=== PATIENT | male | born 1960 | race Caucasian/White ===

== ENCOUNTER 2017-01-06 20:50 | Inpatient (IN) | payer OTHER ==
[~2017-01-06] VITALS: Ht 162.6 cm; Wt 93.6 kg
[2017-01-06] MEDS ORDERED: SOD CHLORIDE 0.9% 1,000 ML IV STA (21:43)
[2017-01-06] MEDS ORDERED: morphine 4 MG/ML VIAL IV STA (21:51)
[2017-01-06] MEDS ORDERED: ONDANSETRON 4 MG INJ IV STA ×2 (21:51→23:09)
[2017-01-06] MEDS ORDERED: HYDROmorphONE 1 MG/ML SYG IV STA (23:09)
[2017-01-06 23:10] LABS: ABNORMAL IP MESSAGE 1; BASOPHILS % 0.4 % (0.0-2.0); EOSINOPHILS # 0.2 10^3/ul (0.0-0.5); EOSINOPHILS % 2.1 % (0.0-7.0); HEMATOCRIT 42.6 % (42.0-52.0); HEMOGLOBIN 14.8 g/dl (14.0-18.0); LYMPHOCYTES # 2.4 10^3/ul (0.8-2.9); LYMPHOCYTES % 25.5 % (15.0-51.0); MEAN CORPUSCULAR HEMOGLOBIN 32.2 pg (29.0-33.0); MEAN CORPUSCULAR HGB CONC 34.7 g/dl (32.0-37.0); MEAN CORPUSCULAR VOLUME 92.8 fl (82.0-101.0); MONOCYTE # 1.1 10^3/ul (0.3-0.9); MONOCYTES % 11.8 % (0.0-11.0); NEUTROPHIL # 5.7 10^3/ul (1.6-7.5); NEUTROPHILS % 59.8 % (39.0-77.0); PLATELET COUNT 74 10^3/UL (140-415); POSITIVE DIFF @See below; RED BLOOD COUNT 4.59 10^6/ul (4.70-6.10); RED CELL DISTRIBUTION WIDTH 13.9 % (11.5-14.5); WHITE BLOOD COUNT 9.5 10^3/ul (4.8-10.8)
[2017-01-06] MEDS ORDERED: IOHEXOL 300MG/ML 150 ML BTL ONE (23:24)
[2017-01-06] MEDS ORDERED: SOD CHLORIDE 0.9% 100 ML ONE (23:24)
[2017-01-06 23:31] LABS: ALANINE AMINOTRANSFERASE 91 IU/L (13-69); ALBUMIN 3.3 g/dl (3.3-4.9); ALBUMIN/GLOBULIN RATIO 0.89; ALKALINE PHOSPHATASE 185 IU/L (42-121); AMYLASE 128 U/L (11-123); ANION GAP 13 (8-16); ASPARTATE AMINO TRANSFERASE 107 IU/L (15-46); BILIRUBIN,INDIRECT 1.4 mg/dl (0-1.1); BILIRUBIN,TOTAL 1.7 mg/dl (0.2-1.3); BLOOD UREA NITROGEN 17 mg/dl (7-20); CALCIUM 8.6 mg/dl (8.4-10.2); CARBON DIOXIDE 27 mmol/L (21-31); CHLORIDE 110 mmol/L (97-110); CREATININE 0.81 mg/dl (0.61-1.24); GLUCOSE 103 mg/dl (70-220); POTASSIUM 4.2 mmol/L (3.5-5.1); SODIUM 146 mmol/L (135-144)
[2017-01-06 23:45] LABS: INR 1.14; PARTIAL THROMBOPLASTIN TIME 34.9 Sec (25.0-35.0); PROTIME 14.8 Sec (11.9-14.9); PT RATIO 1.2; TROPONIN-I < 0.012 ng/ml (0.00-0.12)
[2017-01-07] MEDS ORDERED: METOCLOPRAMIDE 10 MG INJ IV STA (00:34)
--- NOTE | 2017-01-07 00:47 | ERD ---
ER Documentation Chief Complaint Chief Complaint epigastric pain x 1 week, worse today HPI This is a 56-year-old male with a history of hepatitis C diagnosed one year ago. The patient indicates that for the past 2 weeks he has been experiencing intermittent epigastric pain that has significantly worsened several hours prior to arrival. He did have an episode of nonbloody nonbilious emesis but denies any hemoptysis hematemesis or melanotic stools. He indicated he been placed on medication for his hepatitis C but has not taken that for the past several weeks due to the severity of his pain. He has a history of remote alcohol use but states he has been abstinent from alcohol for over 1 year. He denies any fever shaking or chills. He has no shortness of breath at rest or exertion. He states the pain is persistent, nonradiating, 10 out of 10 in intensity and not positional. He denies any chest pain or pressure that radiates to the neck arm back or jaw. ROS All systems reviewed and are negative except as per history of present illness. Allergies Allergies: Coded Allergies: Penicillins (Verified Allergy, Unknown, rash, 01/06/17) PMhx/Soc Medical and Surgical Hx: pt denies Surgical Hx History of Surgery: No Anesthesia Reaction: No Hx Neurological Disorder: No Hx Respiratory Disorders: No Hx Cardiac Disorders: No Hx Psychiatric Problems: No Hx Miscellaneous Medical Probl: Yes (hep c, liver cirhosis) Hx Alcohol Use: Yes Hx Substance Use: No Hx Tobacco Use: No Smoking Status: Never smoker Physical Exam Vitals Vital Signs Date Time Temp Pulse Resp B/P Pulse Ox O2 Delivery O2 Flow Rate FiO2 01/06/17 20:53 99.8 97 20 142/84 98 Physical Exam Constitutional:Well-developed. Well-nourished. HEENT:Normocephalic. Atraumatic.Pupils were equal round reactive to light. Moist mucous membranes.No tonsillar exudates. Sclera icterus. Neck: No nuchal rigidity. No lymphadenopathy. No posterior cervical spine tenderness or step-offs. Respiratory: Not using accessory muscles of respiration.Lungs were clear to auscultation bilaterally. No rhonchi. No rales. No wheezing. Cardiovascular: Regular rate regular rhythm.No murmurs. No rubs were appreciated.S1, S2 normal. Distal pulses are palpable 2+ bilaterally. GI: Abdomen was soft. Gastric tenderness and distended with no tense ascites or fluid thrill. No pulsatile abdominal masses or bruits. No rebound. No guarding. Bowel sounds were present and normal. Muscle skeletal: Full range of motion of both the upper and lower extremities bilaterally.Normal muscle tone.No assymetrical calf tenderness or swelling. Skin: No petechia, no purpura. No lesions on the palms or the soles of the feet. No maculopapular rash. NEURO: Patient was alert, awake, orientated x3.No facial droop. Gait observed and normal with no ataxia.Speech had regular rate and rhythm. No focal neurological deficits. Result Diagram: 01/06/17 2301 01/06/17 230 Results 24 hrs Laboratory Tests Test 01/06/17 23:01 White Blood Count 9.510^3/ul Red Blood Count 4.5910^6/ul Hemoglobin 14.8g/dl Hematocrit 42.6% Mean Corpuscular Volume 92.8fl Mean Corpuscular Hemoglobin 32.2pg Mean Corpuscular Hemoglobin Concent 34.7g/dl Red Cell Distribution Width 13.9% Platelet Count 7410^3/UL Mean Platelet Volume 11.0fl Neutrophils % 59.8% Lymphocytes % 25.5% Monocytes % 11.8% Eosinophils % 2.1% Basophils % 0.4% Nucleated Red Blood Cells % 0.0/100WBC Neutrophils # 5.710^3/ul Lymphocytes # 2.410^3/ul Monocytes # 1.110^3/ul Eosinophils # 0.210^3/ul Basophils # 0.010^3/ul Nucleated Red Blood Cells # 0.010^3/ul Prothrombin Time 14.8Sec Prothrombin Time Ratio 1.2 INR International Normalized Ratio 1.14 Activated Partial Thromboplast Time 34.9Sec Sodium Level 146mmol/L Potassium Level 4.2mmol/L Chloride Level 110mmol/L Carbon Dioxide Level 27mmol/L Anion Gap 13 Blood Urea Nitrogen 17mg/dl Creatinine 0.81mg/dl Glucose Level 103mg/dl Calcium Level 8.6mg/dl Total Bilirubin 1.7mg/dl Direct Bilirubin 0.30mg/dl Indirect Bilirubin 1.4mg/dl Aspartate Amino Transf (AST/SGOT) 107IU/L Alanine Aminotransferase (ALT/SGPT) 91IU/L Alkaline Phosphatase 185IU/L Troponin I < 0.012ng/ml Total Protein 7.0g/dl Albumin 3.3g/dl Globulin 3.70g/dl Albumin/Globulin Ratio 0.89 Amylase Level 128U/L Lipase 78U/L Current Medications Medications (Trade) Dose Ordered Sig/Ann Marie Route PRN Reason Start Time Stop Time Status Last Admin Dose Admin Sodium Chloride (NS) 1,000 ml @ 1,000 mls/hr Q1H STAT IV 01/06/17 21:43 01/06/17 22:42 DC Morphine Sulfate (morphine) 4 mg ONCE STAT IV 01/06/17 21:51 01/06/17 21:53 DC 01/06/17 22:09 Ondansetron HCl (Zofran Inj) 4 mg ONCE STAT IV 01/06/17 21:51 01/06/17 21:53 DC 01/06/17 22:09 Ondansetron HCl (Zofran Inj) 4 mg ONCE STAT IV 01/06/17 23:09 01/06/17 23:10 DC 01/06/17 23:09 Hydromorphone HCl (Dilaudid) 1 mg ONCE STAT IV 01/06/17 23:09 01/06/17 23:10 DC 01/06/17 23:09 IV Flush 10 ml 10 ml STK-MED ONCE .ROUTE 01/06/17 23:24 01/06/17 23:25 DC 01/06/17 23:44 Sodium Chloride (NS) 100 ml @ ud STK-MED ONCE .ROUTE 01/06/17 23:24 01/06/17 23:25 DC 01/06/17 23:44 Iohexol (Omnipaque 300mg/ ml) 150 ml STK-MED ONCE .ROUTE 01/06/17 23:24 01/06/17 23:25 DC 01/06/17 23:44 Metoclopramide HCl (Reglan) 10 mg ONCE STAT IV 01/07/17 00:34 01/07/17 00:42 DC Procedures/MDM The patient presented to the emergency department with epigastric pain. My differential diagnosis included but was not limited to abdominal aortic aneurysm , choledocholithiasis, gallstone ileus, renal colic, pyelonephritis, pancreatitis, peptic ulcer disease, atypical myocardical infarction, mesenteric ischemia, GERD, pulmonary infarction. The patient was placed on a hospital monitor, continuous pulse oximetry and IV access was established by nursing staff. She received multiple doses of antiemetics but continued to have episodes of nonbloody nonbilious emesis and therefore I did not feel the patient could be discharged home as he will require IV fluids and was unable to tolerate oral intake. An EKG was obtained to rule out myocardial ischemia. 12 Lead EKG tracing ordered and reviewed by myself showed: Normal sinus rhythm of 84 bpm and no arrhythmia. AL interval normal. QRS duration normal. No ST segment elevation No ST segment depression. No changes consistent with acute ischemia. There was elevation of LFTs that could suggest ductal obstruction, cholangitis, cholecystiitis or hepatitis. Given that the urinalysis did not show bilirubinuria, my suspicion for common duct obstruction was low. He has a known history of Hepatitis C. CT scan of the abdomen have been ordered and reviewed by myself. The patient's bilirubin was elevated. CT scan will be followed by the oncoming ED physician and the patient will be admitted under the care of the hospitalist Dr. Madrigal. The patient had no peritoneal signs on physical exam to suggest a surgical abdomen. Departure Diagnosis: Primary Impression: Abdominal pain Abdominal location: epigastric Qualified Code: R10.13 - Epigastric pain Additional Impressions: Hyperbilirubinemia Intractable vomiting with nausea Vomiting type: unspecified Qualified Code: R11.2 - Intractable vomiting with nausea, unspecified vomiting type Condition: Serious ELENAMARK ROCHA Jan 07, 2017 00:47
--- NOTE | 2017-01-07 02:22 | RADRPT ---
PROCEDURE: CT ABDOMEN/PELVIS WITH CONTRAST CLINICAL INDICATION: 56-year-old male with abdominal pain. TECHNIQUE: The study was performed utilizing a GE CelerypePanTheryx VCT 64-slice CT scanner. Direct axia l sections were obtained through the abdomen and pelvis with the use of 100 cc of Omnipaque-300 loni onic intravenous contrast material. Sagittal and coronal reformations were obtained. One or more of the following dose reduction techniques were utilized: automated exposure control, adjustment of the mA and/or kV according to patient's size and/or use of iterative reconstruction technique. DICOM im ages are available. The images were reviewed on a PACS workstation. CTD/vol = 21.3 mGy; Total Exam DLP = 1314.7 mGy-cm. COMPARISON: None. FINDINGS: There is trace bibasilar subsegmental atelectasis There is no evidence for significant pleural effu shar. The liver has a cirrhotic appearance with enlargement of the left lobe but without focal area s of abnormal density or contrast enhancement. No intrahepatic nor extrahepatic biliary ductal dilat ation is seen. The gallbladder is distended but without evidence for calcified stones, significant w all thickening or pericholecystic fluid. The pancreas is without areas of abnormal attenuation or co ntrast enhancement. This spleen is enlarged measuring 16.7 cm in length but abnormal density or con trast enhancement. There are mild splenic varices present. The adrenal glands are unremarkable. The kidneys are functional bilaterally without abnormal density. No hydroureteronephrosis nor nephrouret erolithiasis is evident. The urinary bladder contains urine. There is no evidence for bowel obstruct ion. The appendix is visualized and is without edema or surrounding inflammatory reaction. There is no significant free fluid. There is minimal left inguinal hernia containing fat. The aortoiliac vessels are without aneurysmal dilatation. The osseous structures are intact. IMPRESSION: 1. Cirrhotic liver. 2. Distended gallbladder. 3. Splenomegaly with splenic varices. 4. No CT evidence for appendicitis. 5. Minimal left inguinal hernia containing fat. .Yeison Munoz MD, MD Date Time Electronically viewed and signed by .Yeison Munoz MD, MD on 01/07/2017 02:21 .M/
[2017-01-07 03:32] VITALS: Ht 162.6 cm; Wt 93.6 kg
[2017-01-07 03:40] VITALS: BP 112/65; RESP 19
--- NOTE | 2017-01-07 03:43 | RADRPT ---
PROCEDURE: CHEST - 1 VIEW CLINICAL INDICATION: 56-year-old male with chest pain. TECHNIQUE: A single frontal AP semi-erect portable view of the chest was performed. The images we re reviewed on a PACS workstation. COMPARISON: None. FINDINGS: There is a shallow inspiration accentuating the heart size. Accounting for this, the cardiomediastin al silhouette is within normal limits. There is no evidence for an infiltrate. There is no evidenc e for congestive heart failure. There is no evidence for pneumothorax. The osseous structures are in tact. IMPRESSION: No evidence for active cardiopulmonary disease. .Yeison Munoz MD, MD Date Time Electronically viewed and signed by .Yeison Munoz MD, on 01/07/2017 03:42 .Iliana/
[2017-01-07] MEDS ORDERED: ACETAMINOPHEN 325 MG TAB PO PRN (04:30)
[2017-01-07] MEDS ORDERED: morphine 2 MG INJ IV PRN (04:30)
[2017-01-07] MEDS ORDERED: NACL 0.9% 3 ML SYG IV SCH (04:30)
[2017-01-07] MEDS ORDERED: ONDANSETRON 4 MG INJ IV PRN (04:30)
[2017-01-07] MEDS ORDERED: SUCRALFATE 1 GM TAB PO ONE (05:00)
[2017-01-07] MEDS: PANTOPRAZOLE 40 MG INJ IV SCH ×2 (05:28→18:25)
[2017-01-07 06:30] LABS: INR 1.28; PROTIME 16.2 Sec (11.9-14.9); PT RATIO 1.3
[2017-01-07 06:31] LABS: PARTIAL THROMBOPLASTIN TIME 36.8 Sec (25.0-35.0)
[2017-01-07 06:47] LABS: CHOL/HDL RATIO 3.3 RATIO; MAGNESIUM 1.9 mg/dl (1.7-2.5)
--- NOTE | 2017-01-07 07:08 | HP ---
Date/Time of Note Date/Time of Note DATE: 01/07/17 TIME: 06:54 Assessment/Plan VTE Prophylaxis VTE Prophylaxis Intervention: SCD's Lines/Catheters IV C[facility]ter Type [facility]from [facility] Saline Lock Assessment/Plan Chief Complaint/Hosp Course This is a 56-year-old male being admitted to the [facility] floor for: #1 epigastric pain: Ulcer versus gastritis versus pancreatitis versus other GI etiology. Patient does report at times that he experiences symptoms that are described as heartburn. His lipase at this time is within normal limits. CT scan shows cirrhosis and a distended gallbladder but no other shots signs of acute process. At the current time we will start him on Protonix and Carafate. Will consult GI for further evaluation. #2 history of hepatitis C: Patient does not know what medication he was taken. He has a liver specialist that he sees and he supposed to see him again soon. Will check hepatitis panel. #3 cirrhosis: This apparently will be a new diagnosis. History of hepatitis C as well as heavy alcohol use in the past. Will check an ammonia level. Will check an MRCP in the setting of cirrhosis and elevated liver function tests and elevated bilirubin. Will consult GI for further treatment strategy. #4 transaminitis with elevated bilirubin: This likely is secondary to #3. Will check an MRCP. There is no signs of any pancreatitis or cholecystitis. #5 thrombocytopenia: Likely secondary to his underlying liver pathology. We will continue to monitor. #6 obesity: We will check a hemoglobin A1c, TSH, lipid panel #7 DVT GI prophylaxis: SCDs, started on Protonix as per #1. Further treatment strategy will be implemented as per the clinical course Problems: HPI/ROS Admit Date/Time Admit Date/Time Jan 07, 2017 at 00:38 Hx of Present Illness Chief complaint: Epigastric pain This is a 56-year-old male with a history of hepatitis C diagnosed one year ago. The patient indicates that for the past 2 weeks he has been experiencing intermittent epigastric pain that has significantly worsened several hours prior to arrival. He did have an episode of nonbloody nonbilious emesis but denies any hemoptysis hematemesis or melanotic stools. He indicated he been placed on medication for his hepatitis C but has not taken that for the past several weeks due to the severity of his pain. He has a history of remote alcohol use but states he has been abstinent from alcohol for over 1 year. He denies any fever shaking or chills. He has no shortness of breath at rest or exertion. He states the pain is persistent, nonradiating, 10 out of 10 in intensity and not positional. He denies any chest pain or pressure that radiates to the neck arm back or jaw. Upon my examination of the bedside, patient does state that he sees a liver specialist was not started him on any medications yet except for the medicine for the hepatitis C. He does not remember the name of the medication. He is to follow-up with his liver doctor. He does stay also that at times he notices burning in his throat after he eats.Allergies: Penicillin Medications: Unknown ROS Const: As per HPI Eyes : No pain discharge or redness or change in visual acuity ENT: No pain, sore throat, congestion, congestion, dysphagia or discharge Respiratory: No shortness of breath, cough, sputum, wheezing, or pleuritic pain Cardiovascular: No chest pain, palpitation, PND, or edema GI : As per HPI Genitourinary: No dysuria, hematuria, flank pain , discharge or CVA tenderness Musculoskeletal: No joint pain, back pain, neck pain, restricted range of motion in neck or joints Skin: No rash, bruising or hives Neuro: No headache, dizziness, syncope, seizure, focal weakness Endocrine: No polyuria, polydipsia, temperature intolerance Psych: No hallucination, depression, anxiety or suicidal ideation PMH/Family/Social Past Medical History Hepatitis C Past Surgical History Left inguinal hernia repair Family History Significant Family History: diabetes Social History Alcohol Use: sober Smoking Status: Never smoker Drug Use: none Exam/Review of Systems Vital Signs Vitals Vital Signs Date Time Temp Pulse Resp B/P Pulse Ox O2 Delivery O2 Flow Rate FiO2 01/07/17 03:40 98.1 68 19 112/65 97 01/07/17 02:00 Room Air Intake and Output 01/06/17 01/06/17 01/07/17 14:59 22:59 06:59 Intake Total 30 ml Balance 30 ml Exam Exam General: Sitting in bed in mild distress from epigastric pain HEENT: Atraumatic, normocephalic. The pupils are equal, round and reactive. Extraocular motor are intact, no scleral icterus Neck: Supple with full range of motion. No rigidity or meningismus Chest: Nontender Lungs: Clear to auscultation bilaterally no crackles rales or wheezing Heart: Normal S1-S2, Regular rhythm and rate. No murmur, S3, or S4 Abdomen: Soft, tender to palpation at the epigastric region, tended abdomen without tenderness to palpation, questionable ascites Extremities: Normal to inspection, no edema no cyanosis Neurologic: Normal mental status, speech normal, cranial nerves II through XII are intact, motor and sensory are intact, no focal weakness, no asterixis Additional Comments PROCEDURE: CT ABDOMEN/PELVIS WITH CONTRAST CLINICAL INDICATION: 56-year-old male with abdominal pain. TECHNIQUE: The study was performed utilizing a [employer]SoftT 64-slice CT scanner. Direct axial sections were obtained through the abdomen and pelvis with the use of 100 cc of Omnipaque-300 nonionic intravenous contrast material. Sagittal and coronal reformations were obtained. One or more of the following dose reduction techniques were utilized: automated exposure control, adjustment of the mA and/or kV according to patient's size and/or use of iterative reconstruction technique. DICOM images are available. The images were reviewed on a PACS workstation. CTD/vol = 21.3 mGy; Total Exam DLP = 1314.7 mGy-cm. COMPARISON: None. FINDINGS: There is trace bibasilar subsegmental atelectasis There is no evidence for significant pleural effusion. The liver has a cirrhotic appearance with enlargement of the left lobe but without focal areas of abnormal density or contrast enhancement. No intrahepatic nor extrahepatic biliary ductal dilatation is seen. The gallbladder is distended but without evidence for calcified stones, significant wall thickening or pericholecystic fluid. The pancreas is without areas of abnormal attenuation or contrast enhancement. This spleen is enlarged measuring 16.7 cm in length but abnormal density or contrast enhancement. There are mild splenic varices present. The adrenal glands are unremarkable. The kidneys are functional bilaterally without abnormal density. No hydroureteronephrosis nor nephroureterolithiasis is evident. The urinary bladder contains urine. There is no evidence for bowel obstruction. The appendix is visualized and is without edema or surrounding inflammatory reaction. There is no significant free fluid. There is minimal left inguinal hernia containing fat. The aortoiliac vessels are without aneurysmal dilatation. The osseous structures are intact. IMPRESSION: 1. Cirrhotic liver. 2. Distended gallbladder. 3. Splenomegaly with splenic varices. 4. No CT evidence for appendicitis. 5. Minimal left inguinal hernia containing fat. .Yeison Munoz MD, Date Time Electronically viewed and signed by .Yeison Munoz MD, MD on 01/07/2017 02:21 .M/ CC: MARK PARKER PROCEDURE: CHEST - 1 VIEW CLINICAL INDICATION: 56-year-old male with chest pain. TECHNIQUE: A single frontal AP semi-erect portable view of the chest was performed. The images were reviewed on a PACS workstation. COMPARISON: None. FINDINGS: There is a shallow inspiration accentuating the heart size. Accounting for this , the cardiomediastinal silhouette is within normal limits. There is no evidence for an infiltrate. There is no evidence for congestive heart failure. There is no evidence for pneumothorax. The osseous structures are intact. IMPRESSION: No evidence for active cardiopulmonary disease. .Yeison Munoz MD, MD Date Time Electronically viewed and signed by .Yeison Munoz MD, MD on 01/07/2017 03:42 .M/ CC: MARK PARKER Labs Result Diagram: 01/06/17 2301 01/06/17 2301 Medications Medications Current Medications Ondansetron HCl (Zofran Inj) 4 mg Q6H PRN IV NAUSEA AND/OR VOMITING; Start 01/07/17 at 04:30 Acetaminophen (Tylenol Tab) 650 mg Q6H PRN PO PAIN LEVEL 1-3 OR FEVER; Start 01/07/17 at 04:30 Morphine Sulfate (morphine) 2 mg Q4H PRN IV SEVERE PAIN LEVEL 7-10; Start 01/07 at 04:30 Pantoprazole (Protonix Iv) 40 mg BID@,18 IV Last administered on 01/07/17t 05 :28; Admin Dose 40 MG; Start 01/07/17 at 06:00 ZAKIYA TAMEZ Jan 07, 2017 07:07
[2017-01-07 07:09] LABS: THYROID STIMULATING HORMONE 6.39 MIU/L (0.465-4.680)
[2017-01-07 07:56] VITALS: BP 105/64; RESP 17
[2017-01-07 08:37] LABS: HAAIG REFLEX REFLEX FILED
[2017-01-07 09:51] LABS: HEPATITIS B CORE ANTIBODY NEGATIVE (NEGATIVE)
--- NOTE | 2017-01-07 11:11 | CONS ---
Date/Time of Note Date/Time of Note DATE: 01/07/17 TIME: 10:16 Assessment/Plan Assessment/Plan Chief Complaint/Hosp Course Assessment: Epigastric pain Ulcer versus gastritis versus pancreatitis Cirrhosis CT : Cirrhotic liver. Distended gallbladder. Splenomegaly with splenic varices. History of hepatitis C Transaminitis with elevated bilirubin Thrombocytopenia Obesity Plan: Start on clear liquid diet Order IV maintenance fluids EGD on Sunday Awaiting MRCP results Consultation performed in collaboration with Dr. Concepcion Plan of action discussed with nursing staff and the patient. All laboratory data and imaging reviewed. Will continue monitoring. Problems: Consultation Date/Type/Reason Admit Date/Time Jan 07, 2017 at 00:38 Date of Consultation: Jan 07, 2017 Type of Consultation: GI Reason for Consultation Epigastric pain Hx of Present Illness 56-year-old male presents with severe epigastric pain rated 10 out of 10. The pain started on Sunday after a meal. Patient reports history of indigestion and epigastric pain after each meal however it has never been so severe in nature. Patient had several episodes of vomiting on Sunday without hematemesis. He denies hematochezia, bloating, change of bowel habits, fevers, diarrhea or constipation. Patient has been diagnosed with hepatitis C and just received medication but has not started on regimen yet. He has been n.p.o. since the symptoms started. Today feeling better with pain management measures as needed. Patient has a history of alcohol abuse however quit drinking alcohol years ago . He denies smoking, history of blood transfusion, or any drug use. CT scan showed signs of cirrhosis. Lab work significant for transaminitis, slightly elevated bilirubin, elevated TSH. Physical exam reveals tenderness in the entire upper abdomen especially in her right upper quadrant and midepigastric region. Plan to schedule patient for EGD on Sunday. Start clear liquid diet and keep him n.p.o. after 10 AM on Sunday. Patient has been explained the procedures including risks and benefits. Patient is in agreement with the plan. Constitutional: improved, no complaints Eyes: no complaints ENT: no complaints Respiratory: no complaints Cardiovascular: no complaints Gastrointestinal: other (See HPI) Genitourinary: no complaints Musculoskeletal: no complaints Skin: no complaints Neurologic: no complaints Endocrine: no complaints Lymphatic: no complaints Psychological: nl mood/affect, no complaints Immunologic: no complaints Past Medical History Past medical history includes hepatitis C, obesity, new diagnosis of cirrhosis. Family history is positive for brother who had diabetes mellitus now . Medical History: other (See PMH) Past Surgical History Past Surgical Hx: other (Left inguinal hernia repair) Family History Significant Family History: other (Brother had diabetes mellitus type 2) Social History Alcohol Use: other (History of alcohol abuse) Smoking Status: Never smoker Drug Use: none Exam/Review of Systems Vital Signs Vitals Vital Signs Date Time Temp Pulse Resp B/P Pulse Ox O2 Delivery O2 Flow Rate FiO2 01/07/17 07:56 97.5 65 17 105/64 96 01/07/17 02:00 Room Air Intake and Output 01/06/17 01/06/17 01/07/17 15:00 23:00 07:00 Intake Total 30 ml Balance 30 ml Exam PHYSICAL EXAMINATION: GENERAL: Well developed, obese, well nourished, alert & oriented x 3, in no acute distress SKIN: No lesions, no stigmata chronic liver disease, no evidence of bleeding diathesis LYMPHATIC: No palpable lymphadenopathy. HEAD: Normocephalic, atraumatic, no tenderness. EYES: Pupils equal reactive to light and accommodation, full extraocular movements, sclera clear, non-icteric, no discharge. EARS/NOSE AND THROAT: Ears normal, nose normal, oropharynx normal, oral membranes well hydrated without lesions. NECK: Supple, no masses, thyroid normal, JVP within normal limits, carotids normal without bruits. CHEST: Inspection within normal limits. CARDIOVASCULAR: Heart: Regular rate and rhythm, no murmurs, gallops or rubs. Peripheral pulses present within normal limits, no cyanosis, clubbing or edemas. No pulsatile abdominal mass RESPIRATORY: Lungs clear to auscultation and percussion, no wheezing, no rubs GASTROINTESTINAL AND LIVER: Abdomen: Obese , distended . Right upper quadrant and epigastric tenderness, no hernias, no masses, no organomegaly, no ascites, no guarding, no rebound tenderness, normoactive bowel sounds. Rectal: Deferred. GENITOURINARY: [Male genitalia within normal limits. EXTREMITIES: No cyanosis, clubbing or edema. Results Result Diagram: 01/06/17 2301 01/06/17 2301 Results 24 hrs Laboratory Tests Test 01/06/17 23:01 01/07/17 05:12 12/3/17 08:18 01/07/17 08:20 White Blood Count 9.5 Red Blood Count 4.59 L Hemoglobin 14.8 Hematocrit 42.6 Mean Corpuscular Volume 92.8 Mean Corpuscular Hemoglobin 32.2 Mean Corpuscular Hemoglobin Concent 34.7 Red Cell Distribution Width 13.9 Platelet Count 74 L Mean Platelet Volume 11.0 H Neutrophils % 59.8 Lymphocytes % 25.5 Monocytes % 11.8 H Eosinophils % 2.1 Basophils % 0.4 Nucleated Red Blood Cells % 0.0 Neutrophils # 5.7 Lymphocytes # 2.4 Monocytes # 1.1 H Eosinophils # 0.2 Basophils # 0.0 Nucleated Red Blood Cells # 0.0 Prothrombin Time 14.8 16.2 H Prothrombin Time Ratio 1.2 1.3 INR International Normalized Ratio 1.14 1.28 Activated Partial Thromboplast Time 34.9 36.8 H Sodium Level 146 H Potassium Level 4.2 Chloride Level 110 Carbon Dioxide Level 27 Anion Gap 13 Blood Urea Nitrogen 17 Creatinine 0.81 Glucose Level 103 Calcium Level 8.6 Total Bilirubin 1.7 H Direct Bilirubin 0.30 H Indirect Bilirubin 1.4 H Aspartate Amino Transf (AST/SGOT) 107 H Alanine Aminotransferase (ALT/SGPT) 91 H Alkaline Phosphatase 185 H Troponin I < 0.012 Total Protein 7.0 Albumin 3.3 Globulin 3.70 H Albumin/Globulin Ratio 0.89 Amylase Level 128 H Lipase 78 Hemoglobin A1c 4.2 Magnesium Level 1.9 Triglycerides Level 86 Cholesterol Level 78 L LDL Cholesterol, Calculated 38 HDL Cholesterol 23 L Cholesterol/HDL Ratio 3.3 Thyroid Stimulating Hormone (TSH) 6.390 H Hepatitis A Antibody Total NEGATIVE Hepatitis B Surface Antigen NEGATIVE Hepatitis B Core Total Antibody NEGATIVE Hepatitis C Antibody REACTIVE H Ammonia 34 H Medications Medications Current Medications Ondansetron HCl (Zofran Inj) 4 mg Q6H PRN IV NAUSEA AND/OR VOMITING; Start 01/07/17 at 04:30 Acetaminophen (Tylenol Tab) 650 mg Q6H PRN PO PAIN LEVEL 1-3 OR FEVER; Start 01/07/17 at 04:30 Morphine Sulfate (morphine) 2 mg Q4H PRN IV SEVERE PAIN LEVEL 7-10 Last administered on 01/07/17 07:21; Admin Dose 2 MG; Start 01/07/17 at 04:30 Pantoprazole (Protonix Iv) 40 mg BID@18 IV Last administered on 12/3/17at 05 :28; Admin Dose 40 MG; Start 01/07/17 at 06:00 Copies To: CC: ARMEN CONCEPCION MD, ANASTASIA NP Jan 07, 2017 10:26
[2017-01-07] MEDS: SOD CHLORIDE 0.9% 1,000 ML IV SCH (11:56)
--- NOTE | 2017-01-07 20:09 | RADRPT ---
PROCEDURE: MRCP. CLINICAL INDICATION: Elevated liver function tests. TECHNIQUE: MRCP was performed on the a high-resolution, high Cynthia field strength scanner. No intr avenous contrast. 3-D coronal rotating MIP images of the biliary tree were reviewed. COMPARISON: CT 01/06/2017 FINDINGS: Cirrhotic heterogeneous appearance the liver with left lobe hypertrophy and border nodularity.. No i ntrahepatic nor extrahepatic biliary dilatation. Distended gallbladder with wall thickening. No gall stones. Common bile duct measures 4 mm. No biliary duct filling defect. No obstructing mass visuali zed. The pancreatic duct is nondilated. No pleural effusion. No peritoneal free fluid. Enlarged spl een measuring 18.5 cm. Normal T2 signal of the pancreas, spleen, adrenal glands and kidneys. No hyd ronephrosis. IMPRESSION: 1. Cirrhotic appearance of the liver. 2. Splenomegaly. 3. Distended gallbladder without stones and wall thickening which may be secondary to cirrhosis. If clinical concern for cholecystitis, recommend a HIDA scan. 4. No evidence of biliary dilation or obstruction. RPTAT:AAJJ Physician Geetha Date Time Electronically viewed and signed by Physician Geetha on 01/07/2017 20:08 /
[2017-01-07 20:57] VITALS: BP 117/58; RESP 18
[2017-01-08] VITALS (10 sets, daily range): BP systolic 101–147; BP diastolic 51–87; PULSE 60–72; RESP 16–32
[2017-01-08] MEDS: SOD CHLORIDE 0.9% 1,000 ML IV SCH ×3 (00:20→21:53)
[2017-01-08] MEDS: PANTOPRAZOLE 40 MG INJ IV SCH ×2 (05:14→18:52)
[2017-01-08 05:36] LABS: ABNORMAL IP MESSAGE 1; BASOPHILS % 0.6 % (0.0-2.0); EOSINOPHILS # 0.3 10^3/ul (0.0-0.5); EOSINOPHILS % 4.4 % (0.0-7.0); HEMOGLOBIN 12.9 g/dl (14.0-18.0); LYMPHOCYTES % 29.9 % (15.0-51.0); MEAN CORPUSCULAR HEMOGLOBIN 32.3 pg (29.0-33.0); MEAN CORPUSCULAR HGB CONC 34.9 g/dl (32.0-37.0); MEAN CORPUSCULAR VOLUME 92.7 fl (82.0-101.0); MEAN PLATELET VOLUME 11.1 fl (7.4-10.4); MONOCYTE # 0.6 10^3/ul (0.3-0.9); MONOCYTES % 9.1 % (0.0-11.0); NEUTROPHIL # 3.7 10^3/ul (1.6-7.5); NEUTROPHILS % 55.7 % (39.0-77.0); PLATELET COUNT 77 10^3/UL (140-415); POSITIVE DIFF @See below; RED BLOOD COUNT 3.99 10^6/ul (4.70-6.10); RED CELL DISTRIBUTION WIDTH 13.6 % (11.5-14.5); WHITE BLOOD COUNT 6.6 10^3/ul (4.8-10.8)
[2017-01-08 06:03] LABS: MAGNESIUM 1.8 mg/dl (1.7-2.5); PHOSPHORUS 3.4 mg/dl (2.5-4.9)
[2017-01-08 06:12] LABS: ALBUMIN 2.5 g/dl (3.3-4.9); ALBUMIN/GLOBULIN RATIO 0.73; BILIRUBIN,DIRECT 0.3 mg/dl (0.00-0.20); BILIRUBIN,INDIRECT 2.1 mg/dl (0-1.1); BILIRUBIN,TOTAL 2.4 mg/dl (0.2-1.3); CREATININE 0.81 mg/dl (0.61-1.24); POTASSIUM 3.9 mmol/L (3.5-5.1); TOTAL PROTEIN 5.9 g/dl (6.1-8.1)
--- NOTE | 2017-01-08 14:37 | PN ---
Date/Time of Note Date/Time of Note DATE: 01/08/17 TIME: 14:27 Assessment/Plan VTE Prophylaxis VTE Prophylaxis Intervention: SCD's Lines/Catheters [facility] [place] Assessment/Plan Assessment/Plan This is a 56-year-old male managed for : #1 epigastric pain being worked up for GI cause: EGD today #2 Hep C: continue outpt treatment #3 cirrhosis likely 2/2 #2: LFTs stable #4 transaminitis with elevated bilirubin: This likely is secondary to #3. Will check an MRCP. There is no signs of any pancreatitis or cholecystitis. #5 thrombocytopenia: Likely secondary to his underlying liver pathology. We will continue to monitor. #6 obesity: We will check a hemoglobin A1c, TSH, lipid panel #7 Mild hyperammonemia: so far asymptomatic, add low dose lactulose #8: Elevated TSH with normal free T4, will repeat for consistency DVT GI prophylaxis: SCDs, started on Protonix as per #1. Further treatment strategy will be implemented as per the clinical course Subjective 24 Hr Interval Summary Free Text/Dictation patient seen, no abd pain at this time Planned for EGD today Exam/Review of Systems Vital Signs Vitals Vital Signs Date Time Temp Pulse Resp B/P Pulse Ox O2 Delivery O2 Flow Rate FiO2 01/08/17 07:50 97.6 68 16 114/64 95 01/07/17 02:00 Room Air Intake and Output 01/07/17 01/07/17 01/08/17 15:00 23:00 07:00 Intake Total 250 ml 750 ml Balance 250 ml 750 ml Exam General: Sitting in bed in no distress from epigastric pain HEENT: Atraumatic, normocephalic. The pupils are equal, round and reactive. Extraocular motor are intact, no scleral icterus Neck: Supple with full range of motion. No rigidity or meningismus Chest: Nontender Lungs: Clear to auscultation bilaterally no crackles rales or wheezing Heart: Normal S1-S2, Regular rhythm and rate. No murmur, S3, or S4 Abdomen: Soft, not so tender, +BS Extremities: Normal to inspection, no edema no cyanosis Neurologic: Normal mental status, speech normal, cranial nerves II through XII are intact, motor and sensory are intact, no focal weakness, no asterixis Results Result Diagram: 01/08/1743901/08/17439 Results 24 hrs Laboratory Tests Test 01/08/17 04:40 White Blood Count 6.6 # Red Blood Count 3.99 L Hemoglobin 12.9 L Hematocrit 37.0 L Mean Corpuscular Volume 92.7 Mean Corpuscular Hemoglobin 32.3 Mean Corpuscular Hemoglobin Concent 34.9 Red Cell Distribution Width 13.6 Platelet Count 77 L Mean Platelet Volume 11.1 H Neutrophils % 55.7 Lymphocytes % 29.9 Monocytes % 9.1 Eosinophils % 4.4 Basophils % 0.6 Nucleated Red Blood Cells % 0.0 Neutrophils # 3.7 Lymphocytes # 2.0 Monocytes # 0.6 Eosinophils # 0.3 Basophils # 0.0 Nucleated Red Blood Cells # 0.0 Sodium Level 144 Potassium Level 3.9 Chloride Level 111 H Carbon Dioxide Level 28 Anion Gap 9 Blood Urea Nitrogen 16 Creatinine 0.81 Glucose Level 94 Calcium Level 8.0 L Phosphorus Level 3.4 Magnesium Level 1.8 Total Bilirubin 2.4 H Direct Bilirubin 0.30 H Indirect Bilirubin 2.1 H Aspartate Amino Transf (AST/SGOT) 93 H Alanine Aminotransferase (ALT/SGPT) 79 H Alkaline Phosphatase 134 H Total Protein 5.9 #L Albumin 2.5 L Globulin 3.40 H Albumin/Globulin Ratio 0.73 Medications Medications Current Medications Ondansetron HCl (Zofran Inj) 4 mg Q6H PRN IV NAUSEA AND/OR VOMITING; Start 01/07/17 at 04:30 Acetaminophen (Tylenol Tab) 650 mg Q6H PRN PO PAIN LEVEL 1-3 OR FEVER; Start 01/07/17 at 04:30 Morphine Sulfate (morphine) 2 mg Q4H PRN IV SEVERE PAIN LEVEL 7-10 Last administered on 01/07/17 07:21; Admin Dose 2 MG; Start 01/07/17 at 04:30 Pantoprazole 40 mg 40 mg BID@06,18 IV Last administered on 01/08/17 05:14; Admin Dose 40 MG; Start 01/07/17 at 06:00 Sodium Chloride (NS) 1,000 ml @ 75 mls/hr [id number] IV Last administered on 01/08 05:15; Admin Dose 75 MLS/HR; Start 01/07/17 at 11:00 Procedures Procedures PROCEDURE: MRCP. CLINICAL INDICATION: Elevated liver function tests. TECHNIQUE: MRCP was performed on the a high-resolution, high Cynthia field strength scanner. No intravenous contrast. 3-D coronal rotating MIP images of the biliary tree were reviewed. COMPARISON: CT 01/06/2017 FINDINGS: Cirrhotic heterogeneous appearance the liver with left lobe hypertrophy and border nodularity.. No intrahepatic nor extrahepatic biliary dilatation. Distended gallbladder with wall thickening. No gallstones. Common bile duct measures 4 mm. No biliary duct filling defect. No obstructing mass visualized. The pancreatic duct is nondilated. No pleural effusion. No peritoneal free fluid. Enlarged spleen measuring 18.5 cm. Normal T2 signal of the pancreas, spleen, adrenal glands and kidneys. No hydronephrosis. IMPRESSION: 1. Cirrhotic appearance of the liver. 2. Splenomegaly. 3. Distended gallbladder without stones and wall thickening which may be secondary to cirrhosis. If clinical concern for cholecystitis, recommend a HIDA scan. 4. No evidence of biliary dilation or obstruction. RPTAT:AAJJ Physician Geetha Date Time Electronically viewed and signed by Physician Geetha on 01/07/2017 20 :08 MH/ CC: ZAKIYA TAMEZ BOLATITO M. Jan 08, 2017 14:37
[2017-01-08] MEDS ORDERED: PROPOFOL 20 ML ONE (17:20)
[2017-01-08] MEDS ORDERED: LIDOCAINE 2% (SDV) 5 ML INJ ONE (17:20)
--- NOTE | 2017-01-08 17:36 | OPPN ---
Date/Time of Note Date/Time of Note DATE: 01/08/17 TIME: 17:34 Proc Note GI Procedure Date 01/08/17 Indication: other (Abdominal pain/nausea and vomiting) Pre-procedure Diagnosis Abdominal pain/nausea and vomiting Post-procedure Diagnosis Impression: Severe gastritis. Rule out H. pylori infection. Biopsies obtained Otherwise normal EGD. Plan: Add Carafate and Reglan Clear liquid diet advance as tolerated Review pathology . Procedure Performed: Endoscopy (With biopsies) Surgeon ARMEN DIA MD See signature line Housekeeping Cleaner none Anesthesia Type: MAC Anesthesiologist: LYDIA IBARRA Tourniquet Time none EBL none Transfusion required none Biopsy 1: Gastric body and antrum Grafts/Implants none Tubes/Drains none Complication(s) none Disposition: PACU Procedure Description After informed consent, with the patient/relatives understanding the procedure, its indications, potential risks and complications, including but not limited to : allergic reaction, bleeding, perforation or infection, and after all pertinent questions were answered to the patients satisfaction, the patient/ relatives signed witnessed informed consent. Following this, premedication was administered slowly IV push under careful cardiovascular and respiratory monitoring with pulse oximetry, automatic blood pressure, and monitor car operator. Once the sedative effect was achieved the patient was place in the left lateral decubitus, the panendoscope was introduced and advanced under visual control. Careful examination of the upper gastrointestinal tract, both on insertion as well as withdrawal of the instrument disclosing the following findings: ESOPHAGUS: the mucosa of the entire esophagus was carefully examined and showed the following findings: the mucosa appears within normal limits. There is no evidence of esophagitis, varices, neoplasm, or stricture. No Hiatal Hernia identified. STOMACH: Upon entrance to the stomach air was insufflated, the gastric hunter distended normally. The mucosa of the fundus, body and antrum of the stomach was carefully examined both head-on and on retroflexion, and showed the following findings: There is moderate to severe erythema, edema and erosion of the mucosa of the entire stomach. Biopsies were obtained to rule out H. pylori infection. Otherwise the mucosa appears within normal limits with no abnormalities. There is no evidence of ulcers or neoplasm. PYLORUS: The pylorus was carefully examined and showed the following findings: the pylorus appears patent and within normal limits, with no evidence of gastric outlet obstruction. DUODENUM: The duodenal mucosa was carefully examined in the duodenal bulb as well as the second portion of the duodenum and showed the following findings: the mucosa appears unremarkable with no evidence of duodenitis, ulcer or neoplasm. Copies To: CC: ARMEN DIA MD, MORDO MD Jan 08, 2017 17:36
--- NOTE | 2017-01-08 18:04 | HPN ---
Date/Time of Note Date/Time of Note DATE: 01/08/17 TIME: 17:04 Interval H&P Admission Note Pt. seen H&P reviewed: No system changes ARMEN DIA MD Jan 08, 2017 18:04
[2017-01-08] MEDS: SUCRALFATE 1 GM TAB PO SCH ×2 (18:53→20:22)
[2017-01-08] MEDS: METOCLOPRAMIDE 10 MG TAB PO SCH ×2 (18:53→23:50)
[2017-01-08 20:17] LABS: ADD UMIC NO; UR ASCORBIC ACID NEGATIVE (NEGATIVE); UR BILIRUBIN (Dip) NEGATIVE (NEGATIVE); UR BLOOD (Dip) NEGATIVE (NEGATIVE); UR CLARITY CLEAR (CLEAR); UR COLOR AMBER (YELLOW); UR GLUCOSE (Dip) NEGATIVE (NEGATIVE); UR KETONES (Dip) NEGATIVE (NEGATIVE); UR LEUKOCYTE ESTERASE (Dip) NEGATIVE Leu/ul (NEGATIVE); UR NITRITE (Dip) NEGATIVE (NEGATIVE); UR TOTAL PROTEIN (Dip) NEGATIVE (NEGATIVE); UR UROBILINOGEN (Dip) 2+ mg/dL (NEGATIVE)
[2017-01-09 02:54] VITALS: BP 103/59; RESP 20
[2017-01-09] MEDS: METOCLOPRAMIDE 10 MG TAB PO SCH ×2 (05:34→12:03)
[2017-01-09] MEDS: PANTOPRAZOLE 40 MG INJ IV SCH (05:37)
[2017-01-09 06:47] LABS: ALBUMIN 2.3 g/dl (3.3-4.9); ALBUMIN/GLOBULIN RATIO 0.67; BILIRUBIN,DIRECT 0.2 mg/dl (0.00-0.20); BILIRUBIN,INDIRECT 2.3 mg/dl (0-1.1); BILIRUBIN,TOTAL 2.5 mg/dl (0.2-1.3); CALCIUM 7.9 mg/dl (8.4-10.2); CREATININE 0.79 mg/dl (0.61-1.24); POTASSIUM 3.8 mmol/L (3.5-5.1); TOTAL PROTEIN 5.7 g/dl (6.1-8.1)
[2017-01-09 07:08] LABS: THYROID STIMULATING HORMONE 5.62 MIU/L (0.465-4.680)
[2017-01-09 07:44] VITALS: BP 108/60; RESP 18
[2017-01-09] MEDS: SUCRALFATE 1 GM TAB PO SCH ×2 (08:54→12:03)
--- NOTE | 2017-01-09 10:51 | PN ---
Date/Time of Note Date/Time of Note DATE: 01/09/17 TIME: 10:48 Assessment/Plan VTE Prophylaxis VTE Prophylaxis Intervention: SCD's Lines/Catheters IV [facility]from [facility] Peripheral IV Urinary Cath still in place: No Assessment/Plan Chief Complaint/Hosp Course Assessment: Epigastric pain Impression: Severe gastritis. Rule out H. pylori infection. Biopsies obtained Otherwise normal EGD. Cirrhosis Distended gallbladder. Splenomegaly with splenic varices. History of hepatitis C Transaminitis with elevated bilirubin Thrombocytopenia Obesity Plan: Add Carafate and Reglan Advance diet as toelrated Review pathology Patient seen in collaboration with Dr. Concepcion Subjective: Course reviewed with nursing staff Patient interviewed and examined All labs, imaging and other results reviewed The patient feels much better today, currently denies abd pain or discomfort, nausea or vomiting. Will continue to advance diet as tolerated. PHYSICAL EXAMINATION: GENERAL: Well developed, well nourished, alert & oriented x 3, in no acute distress SKIN: No lesions, no stigmata chronic liver disease, no evidence of bleeding diathesis LYMPHATIC: No palpable lymphadenopathy. HEAD: Normocephalic, atraumatic, no tenderness. EYES: Pupils equal reactive to light and accommodation, full extraocular movements, sclera clear, non-icteric, no discharge. EARS/NOSE AND THROAT: Ears normal, nose normal, oropharynx normal, oral membranes well hydrated without lesions. NECK: Supple, no masses, thyroid normal, CHEST: Inspection within normal limits. CARDIOVASCULAR: Heart: Regular rate and rhythm, no murmurs, RESPIRATORY: Lungs clear to auscultation and percussion, no wheezing, no rubs GASTROINTESTINAL AND LIVER: Abdomen: Soft, non tenderness, non-distended, no hernias, no masses, no organomegaly, no ascites, no guarding, no rebound tenderness, normoactive bowel sounds. Rectal: Deferred. Problems: Exam/Review of Systems Vital Signs Vitals Vital Signs Date Time Temp Pulse Resp B/P Pulse Ox O2 Delivery O2 Flow Rate FiO2 01/09/17 07:44 98.2 60 18 108/60 95 01/08/17 18:49 Room Air Intake and Output 01/08/17 01/08/17 01/09/17 15:00 23:00 07:00 Intake Total 1670 ml 845 ml Balance 1670 ml 845 ml Results Result Diagram: 01/08/17 0440 01/09/17 0503 Results 24 hrs Laboratory Tests Test 01/08/17 16:00 01/09/17 05:03 Urine Color JANET Urine Clarity CLEAR Urine pH 6.0 Urine Specific [place] 1.020 Urine Ketones NEGATIVE Urine Nitrite NEGATIVE Urine Bilirubin NEGATIVE Urine Urobilinogen 2+ H Urine Leukocyte Esterase NEGATIVE Urine Hemoglobin NEGATIVE Urine Glucose NEGATIVE Urine Total Protein NEGATIVE Sodium Level 139 Potassium Level 3.8 Chloride Level 109 Carbon Dioxide Level 26 Anion Gap 8 Blood Urea Nitrogen 14 Creatinine 0.79 Glucose Level 87 Calcium Level 7.9 L Total Bilirubin 2.5 H Direct Bilirubin 0.20 Indirect Bilirubin 2.3 H Aspartate Amino Transf (AST/SGOT) 102 H Alanine Aminotransferase (ALT/SGPT) 79 H Alkaline Phosphatase 108 Ammonia 38 H Total Protein 5.7 L Albumin 2.3 L Globulin 3.40 H Albumin/Globulin Ratio 0.67 Thyroid Stimulating Hormone (TSH) 5.620 H Free Thyroxine 1.49 Medications Medications Current Medications Ondansetron HCl (Zofran Inj) 4 mg Q6H PRN IV NAUSEA AND/OR VOMITING; Start 01/07/17 at 04:30 Acetaminophen (Tylenol Tab) 650 mg Q6H PRN PO PAIN LEVEL 1-3 OR FEVER; Start 01/07/17 at 04:30 Morphine Sulfate (morphine) 2 mg Q4H PRN IV SEVERE PAIN LEVEL 7-10 Last administered on 01/07/17 07:21; Admin Dose 2 MG; Start 01/07/17 at 04:30 Pantoprazole 40 mg 40 mg BID@06,18 IV Last administered on 01/09/17 05:37; Admin Dose 40 MG; Start 01/07/17 at 06:00 Sodium Chloride (NS) 1,000 ml @ 75 mls/hr [id number] IV Last administered on 01/08 21:53; Admin Dose 75 MLS/HR; Start 01/07/17 at 11:00 Sucralfate (Carafate) 1 gm QID PO Last administered on 01/09/17 08:54; Admin Dose 1 GM; Start 01/08/17 at 18:00 Metoclopramide HCl (Reglan) 10 mg Q6 PO Last administered on 01/09/17 05:34; Admin Dose 10 MG; Start 01/08/17 at 18:00 OLIVERIO MUÑOZ Jan 09, 2017 10:51
[2017-01-09] MEDS ORDERED: SUCR1TAB27 PO (12:02)
--- NOTE | 2017-01-09 12:07 | DS ---
Date/Time of Note Date/Time of Note DATE: 01/09/17 TIME: 12:03 Discharge Summary Admission/Discharge Info Admit Date/Time Jan 07, 2017 at 00:38 Discharge Date/Time Discharge Diagnosis This is a 56-year-old male managed for : #1 epigastric pain 2/2 Severe Gastritis #2 Hep C: continue outpt treatment #3 cirrhosis likely 2/2 #2: LFTs stable #4 transaminitis with elevated bilirubin: No obstruction on MRCP #5 thrombocytopenia: Likely secondary to his underlying liver pathology. We will continue to monitor. #6 obesity: #7 Mild hyperammonemia: so far asymptomatic, No treatment for now #8: Subclinical Hypothyroidism: Needs repeat TSH in 3 months DVT GI prophylaxis: SCDs, started on Protonix as per #1. Further treatment strategy will be implemented as per the clinical course Patient Condition: Stable Follow-up Plan Patient is to follow-up with primary care physician within the next 1-2 weeks. He is encouraged to complete at least 30 days of Carafate and PPI therapy, if symptoms however did not improve he can communicate with his primary care doctor or return to the ER. This has been communicated to him, and he has verbalized understanding. Primary Care Provider [facility] Time spent on discharge: > 30 minutes Pending Labs Laboratory Tests Test 01/08/17 16:00 01/09/17 05:03 Urine Color JANET (YELLOW) Urine Clarity CLEAR (CLEAR) Urine pH 6.0 (5.0-9.0) Urine Specific [place] 1.020 (1.003-1.030) Urine Ketones NEGATIVEmg/dL (NEGATIVE) Urine Nitrite NEGATIVEmg/dL (NEGATIVE) Urine Bilirubin NEGATIVEmg/dL (NEGATIVE) Urine Urobilinogen 2+mg/dL (NEGATIVE) Urine Leukocyte Esterase NEGATIVELeu/ul (NEGATIVE) Urine Hemoglobin NEGATIVEmg/dL (NEGATIVE) Urine Glucose NEGATIVEmg/dL (NEGATIVE) Urine Total Protein NEGATIVEmg/dl (NEGATIVE) Sodium Level 139mmol/L (135-144) Potassium Level 3.8mmol/L (3.5-5.1) Chloride Level 109mmol/L (97-110) Carbon Dioxide Level 26mmol/L (21-31) Anion Gap 8 (8-16) Blood Urea Nitrogen 14mg/dl (7-20) Creatinine 0.79mg/dl (0.61-1.24) Glucose Level 87mg/dl (70-220) Calcium Level 7.9mg/dl (8.4-10.2) Total Bilirubin 2.5mg/dl (0.2-1.3) Direct Bilirubin 0.20mg/dl (0.00-0.20) Indirect Bilirubin 2.3mg/dl (0-1.1) Aspartate Amino Transf (AST/SGOT) 102IU/L (15-46) Alanine Aminotransferase (ALT/SGPT) 79IU/L (13-69) Alkaline Phosphatase 108IU/L (42-121) Ammonia 38umol/l (9-30) Total Protein 5.7g/dl (6.1-8.1) Albumin 2.3g/dl (3.3-4.9) Globulin 3.40g/dl (1.3-3.2) Albumin/Globulin Ratio 0.67 Thyroid Stimulating Hormone (TSH) 5.620MIU/L (0.465-4.680) Free Thyroxine 1.49ng/dl (0.64-1.79) CHRISSIE COOK Jan 09, 2017 12:07
[2017-01-09] MEDS ORDERED: PANT40TA3 PO (13:16)
[2017-01-09] MEDS ORDERED: POLY17PO6 PO (13:16)
--- NOTE | 2017-01-09 13:18 | PDOCDIS ---
Discharge Instructions DIAGNOSIS Discharge Diagnosis Severe gastritis / Hep C cirrhosis Subclinical hypothyroidism CONDITION Patient Condition: Stable HOME CARE INSTRUCTIONS: Diet Instructions: Low Fat /CholesterolSpecial Diet: High fiber ACTIVITY: Activity Restrictions: Slowly Increase Activity Rest between Activity FOLLOW UP/APPOINTMENTS Follow-up Plan Patient is to follow-up with primary care physician within the next 1-2 weeks. He is encouraged to complete at least 30 days of Carafate and PPI therapy, if symptoms however did not improve he can communicate with his primary care doctor or return to the ER. This has been communicated to him, and he has verbalized understanding. He will also need a repeat TSH in about 6 weeks CHRISSIE COOK Jan 09, 2017 13:18
[2017-01-09 14:02] VITALS: BP 98/55; RESP 16
[2017-01-09] MEDS: SOD CHLORIDE 0.9% 1,000 ML IV SCH (16:20)
== END 2017-01-09 17:10 | disposition home or self-care (01) | DRG 392 ==
LOC: E/R 20:50 → PP2 01-07 00:38
PROVIDERS: ADMIT Family Medicine; ATTEND Family Medicine
PROC: 0DB78ZX Excision of Stomach, Pylorus, Via Natural or Artificial Opening Endoscopic, Diagnostic (ICD-10-PCS; 2017-01-08)
PROC: 0DB68ZX Excision of Stomach, Via Natural or Artificial Opening Endoscopic, Diagnostic (ICD-10-PCS; principal; 2017-01-08 19:55)
DX: K29.70 Gastritis, unspecified, without bleeding (principal); D69.59 Other secondary thrombocytopenia; E72.20 Disorder of urea cycle metabolism, unspecified; K70.30 Alcoholic cirrhosis of liver without ascites; R16.1 Splenomegaly, not elsewhere classified; B18.2 Chronic viral hepatitis C; R11.2 Nausea with vomiting, unspecified; I86.8 Varicose veins of other specified sites; E02 Subclinical iodine-deficiency hypothyroidism; E66.9 Obesity, unspecified; Z68.35 Body mass index [BMI] 35.0-35.9, adult; R10.11 Right upper quadrant pain; K70.10 Alcoholic hepatitis without ascites; Z86.19 Personal history of other infectious and parasitic diseases; E80.6 Other disorders of bilirubin metabolism
CPT/HCPCS: 71010; 74177; 74181; 80053; 80061; 81003; 82140; 82150; 83036; 83690; 83735; 84100; 84439; 84443; 84484; 85025; 85610; 85730; 86704; 86706; 86708; 86709; 86803; 87086; 87340; 87522; 88305; 88312; 93005; 96374; 96375; 96376; C9113; J1170; J2270; J2405; J2765; J7030; Q9967